=== PATIENT | female | born 2000 | race Caucasian/White ===

== ENCOUNTER 2022-12-30 18:59 | Emergency (ER) | payer OTHER, SELFPAY ==
[2022-12-30] VITALS (13 sets, daily range): BP systolic 102–136; BP diastolic 41–66; PULSE 96–136; RESP 14–27; TEMP 37.4–39.5; O2SAT 99–100
[2022-12-30 19:52] LABS: Hematocrit 40.7 % (37.0-47.0); Hemoglobin 13.5 g/dL (12.0-15.0); Mean Corpuscular HGB Conc 33.2 g/dl (32-36); Mean Corpuscular Hemoglobin 28.4 pg (26-34); Mean Corpuscular Volume 85.5 fl (80-100); Mean Platelet Volume 9.6 fl (7.4-10.4); Platelet Count Result 285 k/mm3 (150-375); Red Blood Count 4.76 M/mm3 (4.2-5.4); Red Cell Distribution Width 13.1 % (11.5-14.5); White Blood Count 2.6 K/mm3 (4.5-10.0)
--- NOTE | 2022-12-30 19:53 | ED.FEVER ---
HPI - Fever General Chief Complaint: Fever Stated Complaint: FEVER Time Seen by Provider: 12/30/22 19:32 History of Present Illness HPI Narrative: 22-year-old female present emergency department for evaluation of sore throat. Patient reports she does have a frequent history of strep throat. Patient describes sore throat and pain with swallowing. Patient denies any headache or neck pain. Patient did treat her fever at home but states it has persisted. Related Data Allergies Allergy/AdvReac Type Severity Reaction Status Date / Time No Known Allergies Allergy Verified 12/30/22 19:32 Review of Systems Review of Systems: All systems reviewed & are unremarkable except as noted in HPI and below Exam Narrative: APPEARANCE: Well appearing, no pain, no distress, well-nourished. HEAD: normocephalic, atraumatic. EYES: PERRLA/EOMI, conjunctivae clear. NOSE: Normal no drainage EARS:TMS clear with good light reflex. THROAT: Pharynx clear, no exudate. Posterior pharyngeal erythema with no swelling NECK: Supple. No adenopathy, no masses. RESPIRATORY: Airway patent, respirations nonlabored. Clear to auscultation bilaterally, no rales, rhonchi, wheezing. CARDIOVASCULAR: Regular rate and rhythm without murmurs rubs or gallops. ABDOMINAL: Soft, nontender, nondistended, normal bowel sounds MUSCULOSKELETAL: Moves all extremities. Strength/ROM intact, No edema, No calf tenderness. NEURO: Alert. Cranial nerves II through XII intact. Grossly intact SKIN: Warm, dry. Normal Color Course Course Emergency Course: 22-year-old female presented ED for evaluation of fever. Patient was afebrile with no leukocytosis. UA showed no sign of infection. Patient was negative for strep and for mono. Patient's fever did improve with treatment and patient did feel improved after rehydration. Patient was updated the results of the work-up was also encouraged of close follow-up with her primary care physician since no underlying etiology for her symptoms were identified. Patient is well-appearing at time of discharge and has no evidence of meningitis. Suspect a underlying viral etiology for her symptoms Vital Signs Vital signs: Vital Signs Temperature 102.5 F H 12/30/22 19:19 Pulse Rate 136 H 12/30/22 19:19 Respiratory Rate 15 12/30/22 19:19 Blood Pressure 136/66 12/30/22 19:19 Pulse Oximetry 100 07/16/23 19:19 Oxygen Delivery Room Air 12/30/22 19:19 Temperature 99.8 F H 12/30/22 21:50 Pulse Rate 99 12/30/22 21:50 Respiratory Rate 22 H 12/30/22 21:50 Blood Pressure 102/41 L 12/30/22 21:50 Pulse Oximetry 99 12/30/22 21:50 Oxygen Delivery Room Air 12/30/22 19:19 MDM - Fever Lab Data 12/30/22 19:49 12/30/22 19:49 Labs: Lab Results 12/30/22 12/30/22 12/30/22 Range/Units 19:32 19:47 19:49 WBC 2.6 L (4.5-10.0) K/mm3 RBC 4.76 (4.2-5.4) M/mm3 Hgb 13.5 (12.0-15.0) g/dL Hct 40.7 (37.0-47.0) % MCV 85.5 (80-100) fl MCH 28.4 (26-34) pg MCHC 33.2 (32-36) g/dl RDW 13.1 (11.5-14.5) % Plt Count 285 (150-375) k/mm3 MPV 9.6 (7.4-10.4) fl Immature Gran % (Auto) Not Reportable Neut % (Auto) Not Reportable Lymph % (Auto) Not Reportable Greer % (Auto) Not Reportable Eos % (Auto) Not Reportable Baso % (Auto) Not Reportable Lymph # (Auto) Not Reportable Greer # (Auto) Not Reportable Eos # (Auto) Not Reportable Baso # (Auto) Not Reportable Abs Immat Gran (auto) Not Reportable Absolute Neuts (auto) Not Reportable Absolute Nucleated RBC Not Reportable Total Counted 100 Neutrophils % (Manual) 12 L (46-73) % Band Neutrophils % 1 (0-6) % Lymphocytes % (Manual) 56 H (18-44) % Monocytes % (Manual) 31 H (3-9) % Nucleated RBC % Not Reportable Abs Neuts (Manual) 0.33 L (1.7-7.2) K/mm3 Abs Lymphs (Manual) 1.45 (1.1-4.5) K/mm3 Abs Monocytes (Ma
[2022-12-30] MEDS: ACETAMINOPHEN 500 MG TABLET 1000 MG PO (19:59)
[2022-12-30] MEDS: IBUPROFEN 400 MG TABLET 800 MG PO (19:59)
[2022-12-30] MEDS: SODIUM CHLORIDE 0.9% IV 1,000 ML 999 ML IV CONT ×2 (19:59→20:33)
[2022-12-30 20:04] LABS: Alanine Aminotransferase 20 U/L (6-35); Albumin Level 4.8 g/dL (3.5-5.1); Alkaline Phosphatase 77 U/L (38-126); Anion Gap 10 mmol/L (8-16); Aspartate Amino Transferase 28 U/L (14-36); Bilirubin,Total 0.4 mg/dL (0.2-1.3); Blood Urea Nitrogen 13 mg/dL (7-17); Calcium 9.4 mg/dL (8.4-10.2); Carbon Dioxide 28 mmol/L (22-30); Chloride 101 mmol/L (98-107); Estimated CRCL calculation 111 ml/min; Estimated Glomerular Filt Rate > 60; Glucose 124 mg/dL (65-110); Potassium 3.6 mmol/L (3.4-5.0); Sodium 139 mmol/L (137-145)
[2022-12-30 20:05] LABS: Appearance Urine Clear (Clear); Bilirubin Urine Negative (Negative); Blood Urine Negative (Negative); Color Urine Yellow (Yellow); Glucose Urine UA Negative (Negative); Ketones Urine Negative (Negative); Leukocyte Esterase Ur Negative LEU/UL (Negative); Nitrate Urine Negative (Negative); Protein Urine Negative (Negative); Urobilinogen Urine 0.2 mg/dL (<2.0); pH Urine 6.5 (5.0-9.0)
[2022-12-30 20:10] LABS: Add Urine Microscopic? NO
[2022-12-30 20:12] LABS: Band Neutrophils Percent 1 % (0-6); Lymphocytes Absolute Manual 1.45 K/mm3 (1.1-4.5); Lymphocytes Percent Manual 56 % (18-44); Monocytes Percent Manual 31 % (3-9); Neutrophils Absolute Manual 0.33 K/mm3 (1.7-7.2); Neutrophils Percent Manual 12 % (46-73); Platelet Estimate Adequate (Adequate); Schistocytes None Seen (NORMAL); Total Cells Counted 100
[2022-12-30 20:15] LABS: Strep Group A RT-PCR NOT DETECTED (Negative)
--- NOTE | 2022-12-30 20:40 | PC.NURSE ---
ice packs applied under patient arms and behind neck at this time for fever per MD Miguel. patient also has fan at bedside.
[2022-12-30 21:41] LABS: Monoscreen Negative (Negative); Negative Monotest Control Negative (Negative); Positive Monotest Control Positive (Positive)
== END 2022-12-30 22:12 | disposition home or self-care (01) ==
PROVIDERS: Physician Assistant; Emergency Provider Emergency Medicine; PCP Physician Assistant
DX: J02.0 Streptococcal pharyngitis (principal); R50.9 Fever, unspecified
CPT/HCPCS: 36415; 80053; 81003; 81025; 85025; 86308; 87651; 96360; 96361; 99283; A9270; J7030